=== PATIENT | female | born 1965 | race Caucasian/White ===

== ENCOUNTER 2020-09-05 09:50 | Emergency (ER) | payer OTHER ==
[~2020-09-05 09:50] MED LIST: CYMBALTA 30MG C30 MG PO; CYMBALTA20 MG PO; CYMBALTA60 MG PO; FLEXERIL10 MG PO; LISINOPRIL-HCT1 EAC1 PO; NAPROSYN500 MG PO; NEURONTIN300 MG PO; OMEPRAZOLE 20MG20 MG PO; OXYCODONE-ACET1 EAC1 PO; PERCOCET 5-3251 EACH PO; TRAMADOL HCL50 MG PO; TRAZODONE 50MG50 MG PO
[2020-09-05] MEDS ORDERED: BACTRIM DS TAB1 EACH PO (12:20)
[2020-09-20] MEDS ORDERED: OXYCODONE-ACET1 EAC1 PO (10:21)
[2020-11-20] MEDS ORDERED: OXYCODONE-ACET1 EAC1 PO (13:07)
[2021-01-03] MEDS ORDERED: OXYCODONE-ACET1 EAC1 PO (08:31)
[2021-01-04] MEDS ORDERED: OXYCODONE-ACET1 EAC1 PO (12:10)
== END 2020-09-05 12:35 | disposition home or self-care (01) ==
LOC: FER 09:50
DX: L03.213 Periorbital cellulitis (principal)
CPT/HCPCS: 99283

== ENCOUNTER 2020-10-20 00:16 | Emergency (ER) | payer OTHER ==
[~2020-10-20 00:16] MED LIST changes: +BACTRIM DS TAB1 EACH PO
[2020-11-20] MEDS ORDERED: OXYCODONE-ACET1 EAC1 PO (13:07)
[2021-01-03] MEDS ORDERED: OXYCODONE-ACET1 EAC1 PO (08:31)
[2021-01-04] MEDS ORDERED: OXYCODONE-ACET1 EAC1 PO (12:10)
[2021-02-14] MEDS ORDERED: PREGABALIN50 MG PO (17:16)
[2021-02-14] MEDS ORDERED: OXYCODONE-ACET1 EAC1 PO (17:16)
[2021-02-14] MEDS ORDERED: HYDROCODON-ACE1 EAC2 PO (17:21)
[2021-03-22] MEDS ORDERED: MELOXICAM15 MG PO (08:40)
[2021-03-22] MEDS ORDERED: OXYCODONE-ACET1 EAC1 PO (08:40)
== END 2020-10-20 01:04 | disposition home or self-care (01) ==
LOC: FER 00:16
DX: D22.62 Melanocytic nevi of left upper limb, including shoulder (principal); I10 Essential (primary) hypertension; G89.29 Other chronic pain; Z79.899 Other long term (current) drug therapy; Z79.891 Long term (current) use of opiate analgesic
CPT/HCPCS: 99282

== ENCOUNTER 2020-12-01 07:36 | Emergency (ER) | payer OTHER ==
[2021-01-03] MEDS ORDERED: OXYCODONE-ACET1 EAC1 PO (08:31)
[2021-01-04] MEDS ORDERED: OXYCODONE-ACET1 EAC1 PO (12:10)
== END 2020-12-01 08:20 | disposition home or self-care (01) ==
LOC: FER 07:36
DX: M54.2 Cervicalgia (principal); G89.29 Other chronic pain; Z79.891 Long term (current) use of opiate analgesic
CPT/HCPCS: 99283; J1885

== ENCOUNTER 2021-02-13 16:09 | Emergency (ER) | payer OTHER ==
[2021-02-13 18:39] LABS: BASOPHIL 0.6 % (0-2); EOSINOPHIL 1.6 % (0-5); HCT 36.4 % (37.0-47.0); LYMPHOCYTE 40.7 % (15-48); MCH 32.2 pg (25.0-31.0); MCV 97.6 fL (78.0-100.0); MONOCYTE 6.2 % (0-12); MPV 11.3 fL (6.0-9.5); NEUTROPHIL 50.6 % (41-80); NRBC 0; PLT 352 K/uL (150-400); RBC 3.73 M/uL (4.20-5.40); RDW 12.8 % (11.5-14.0); WBC 12.3 K/uL (4.0-10.5)
[2021-02-13 18:41] LABS: BILIRUBIN NEGATIVE (NEGATIVE); BLOOD NEGATIVE Ery/uL (NEGATIVE); CLARITY CLEAR (CLEAR); COLOR YELLOW (YELLOW); GLUCOSE (U) NORMAL (NORMAL); LEUKOCYTES NEGATIVE Leu/uL (NEGATIVE); NITRITE NEGATIVE (NEGATIVE); PROTEIN NEGATIVE (NEGATIVE); SPECIFIC GRAVITY >=1.030 (1.001-1.030); pH 5.5 (5.0-9.0)
[2021-02-13 18:46] LABS: AMPHETAMINES NEGATIVE (NEGATIVE); BARBITURATES NEGATIVE (NEGATIVE); ECSTASY (MDMA) NEGATIVE (NEGATIVE); MARIJUANA (THC) NEGATIVE (NEGATIVE); METHADONE NEGATIVE (NEGATIVE); OPIATES NEGATIVE (NEGATIVE); OXYCODONE POSITIVE (NEGATIVE)
[2021-02-13 18:50] LABS: BUN/CREAT RATIO (CALC) 14.3 RATIO; CREATININE 0.91 mg/dL (0.51-0.95); POTASSIUM 3.7 mmol/L (3.5-5.1)
[2021-02-14] MEDS ORDERED: OXYCODONE-ACET1 EAC1 PO (17:16)
[2021-02-14] MEDS ORDERED: PREGABALIN50 MG PO (17:16)
[2021-02-14] MEDS ORDERED: HYDROCODON-ACE1 EAC2 PO (17:21)
[2021-03-22] MEDS ORDERED: MELOXICAM15 MG PO (08:40)
[2021-03-22] MEDS ORDERED: OXYCODONE-ACET1 EAC1 PO (08:40)
== END 2021-02-13 20:40 | disposition home or self-care (01) ==
LOC: FER 16:09
PROVIDERS: Nurse Practitioner Family
DX: G89.29 Other chronic pain (principal); M54.2 Cervicalgia; I95.9 Hypotension, unspecified; I10 Essential (primary) hypertension
CPT/HCPCS: 36415; 80048; 80305; 81003; 85025; J1100; J1885; J7030

== ENCOUNTER 2021-08-14 18:17 | Day surgery (SDCO) | payer OTHER ==
[~2021-08-14] VITALS: Ht 160 cm; Wt 79.4 kg
[~2021-08-14 18:17] MED LIST changes: +HYDROCODON-ACE1 EAC2 PO; +MELOXICAM15 MG PO; +PREGABALIN50 MG PO
[2021-08-14 19:43] LABS: BASOPHIL 0.4 % (0-2); EOSINOPHIL 0.8 % (0-5); HCT 38.2 % (37.0-47.0); HGB 12.4 g/dl (12.5-16.0); LYMPHOCYTE 40.5 % (15-48); MCH 31.4 pg (25.0-31.0); MCHC 32.5 g/dL (32.0-36.0); MCV 96.7 fL (78.0-100.0); MONOCYTE 4.7 % (0-12); MPV 11.1 fL (6.0-9.5); NEUTROPHIL 53.2 % (41-80); NRBC 0; PLT 423 K/uL (150-400); RBC 3.95 M/uL (4.20-5.40); RDW 13.9 % (11.5-14.0); WBC 13.7 K/uL (4.0-10.5)
[2021-08-14 19:56] LABS: ALBUMIN 3.6 g/dL (3.4-5.0); BILIRUBIN - TOTAL 0.3 mg/dL (0.2-1.0); BUN/CREAT RATIO (CALC) 21.1 RATIO; CREATININE 0.9 mg/dL (0.51-0.95); GLOBULIN (CALCULATION) 3.5 g/dL; POTASSIUM 3.7 mmol/L (3.5-5.1); TOTAL PROTEIN 7.1 g/dL (6.4-8.2)
[2021-08-14 20:41] LABS: CORONAVIRUS 2019 SARS-COV-2 NEGATIVE (NEGATIVE); INFLUENZA A NAA NEGATIVE (NEGATIVE)
[2021-08-15] MEDS ORDERED: TRAZODONE HCL150 MG PO (00:57)
[2021-08-15] MEDS ORDERED: PROPRANOLOL HCL80 MG PO (00:59)
[2021-08-15 07:04] LABS: BASOPHIL 0.4 % (0-2); EOSINOPHIL 1.3 % (0-5); HCT 35.6 % (37.0-47.0); HGB 11.6 g/dl (12.5-16.0); LYMPHOCYTE 46.6 % (15-48); MCH 31.7 pg (25.0-31.0); MCHC 32.6 g/dL (32.0-36.0); MCV 97.3 fL (78.0-100.0); MONOCYTE 6.2 % (0-12); MPV 10.9 fL (6.0-9.5); NEUTROPHIL 45.2 % (41-80); NRBC 0; PLT 386 K/uL (150-400); RBC 3.66 M/uL (4.20-5.40); RDW 14.1 % (11.5-14.0)
[2021-08-15 07:06] LABS: INR 1.04 (0.9-1.2); PTT 29.7 SECONDS (24.4-34.7); WBC 12.7 K/uL (4.0-10.5)
[2021-08-15 07:17] LABS: BILIRUBIN - TOTAL 0.4 mg/dL (0.2-1.0); BUN/CREAT RATIO (CALC) 16.5 RATIO; CREATININE 0.79 mg/dL (0.51-0.95); GLOBULIN (CALCULATION) 3.1 g/dL; MAGNESIUM 1.6 mg/dL (1.8-2.4); PHOSPHORUS 3.7 mg/dL (2.6-4.7); POTASSIUM 4.1 mmol/L (3.5-5.1); TOTAL PROTEIN 6.1 g/dL (6.4-8.2)
[2021-08-16 06:56] LABS: BASOPHIL 0.2 % (0-2); EOSINOPHIL 0.1 % (0-5); HCT 32.4 % (37.0-47.0); HGB 10.8 g/dl (12.5-16.0); LYMPHOCYTE 14.5 % (15-48); MCHC 33.3 g/dL (32.0-36.0); MCV 95.9 fL (78.0-100.0); MONOCYTE 7.1 % (0-12); MPV 10.6 fL (6.0-9.5); NEUTROPHIL 77.7 % (41-80); NRBC 0; PLT 347 K/uL (150-400); RBC 3.38 M/uL (4.20-5.40); RDW 13.6 % (11.5-14.0); WBC 16.6 K/uL (4.0-10.5)
[2021-08-16 07:19] LABS: BUN/CREAT RATIO (CALC) 10.1 RATIO; CREATININE 0.79 mg/dL (0.51-0.95)
[2021-08-16 07:21] LABS: MAGNESIUM 2.5 mg/dL (1.8-2.4)
[2021-08-16 11:59] LABS: ALBUMIN 3.1 g/dL (3.4-5.0); BILIRUBIN - DIRECT 0.1 mg/dL (0.00-0.20); BILIRUBIN - TOTAL 0.3 mg/dL (0.2-1.0); GLOBULIN (CALCULATION) 2.7 g/dL; TOTAL PROTEIN 5.8 g/dL (6.4-8.2)
[2021-08-16] MEDS ORDERED: AUGMENTIN 875-1 EACH PO (15:42)
[2021-08-16] MEDS ORDERED: HYDROCODON-ACE1 EAC2 PO (17:32)
== END 2021-08-16 17:25 | disposition home or self-care (01) ==
LOC: FER 18:17 → FMS 23:37
PROVIDERS: Emergency Medicine Emergency Medical Services; Nurse Practitioner; Student in an Organized Health Care Education/Training Program; ADMIT Internal Medicine
DX: K80.12 Calculus of gallbladder with acute and chronic cholecystitis without obstruction (principal); K66.0 Peritoneal adhesions (postprocedural) (postinfection); G89.29 Other chronic pain; I10 Essential (primary) hypertension; K21.9 Gastro-esophageal reflux disease without esophagitis; G47.33 Obstructive sleep apnea (adult) (pediatric); F17.290 Nicotine dependence, other tobacco product, uncomplicated; Z90.81 Acquired absence of spleen; D84.81 Immunodeficiency due to conditions classified elsewhere; Z98.84 Bariatric surgery status; Z79.899 Other long term (current) drug therapy; Z20.822 Contact with and (suspected) exposure to COVID-19
CPT/HCPCS: 36415; 71045; 76705; 80048; 80053; 80076; 82150; 83605; 83690; 83735; 83880; 84100; 84145; 84484; 85025; 85379; 85610; 85730; 93005; 94010; C9113; G0378; J1100; J1170; J1885; J2250; J2405; J2543; J2704; J2710; J3010; J3475; J3490; J7030; J7120; Q9967; U0002

== ENCOUNTER 2021-09-13 18:49 | Emergency (ER) | payer OTHER ==
[~2021-09-13 18:49] MED LIST changes: +AUGMENTIN 875-1 EACH PO; +PROPRANOLOL HCL80 MG PO; +TRAZODONE HCL150 MG PO
[2021-09-13 20:15] LABS: BASOPHIL 0.5 % (0-2); EOSINOPHIL 0.5 % (0-5); HCT 39.9 % (37.0-47.0); HGB 13.3 g/dl (12.5-16.0); MCHC 33.3 g/dL (32.0-36.0); MCV 95.9 fL (78.0-100.0); MPV 11.1 fL (6.0-9.5); NEUTROPHIL 62.8 % (41-80); NRBC 0; PLT 401 K/uL (150-400); RBC 4.16 M/uL (4.20-5.40); RDW 13.4 % (11.5-14.0); WBC 12.1 K/uL (4.0-10.5)
[2021-09-13 20:32] LABS: ALBUMIN 3.8 g/dL (3.4-5.0); BILIRUBIN - TOTAL 0.1 mg/dL (0.2-1.0); BUN/CREAT RATIO (CALC) 17.6 RATIO; CREATININE 0.85 mg/dL (0.51-0.95); GLOBULIN (CALCULATION) 3.5 g/dL; POTASSIUM 3.7 mmol/L (3.5-5.1); TOTAL PROTEIN 7.3 g/dL (6.4-8.2)
[2021-09-13 20:35] LABS: LACTIC ACID 1.3 mmol/L (0.4-1.9)
[2021-09-13 21:57] LABS: BILIRUBIN NEGATIVE (NEGATIVE); BLOOD TRACE-INTACT Ery/uL (NEGATIVE); CLARITY CLEAR (CLEAR); COLOR YELLOW (YELLOW); GLUCOSE (U) NORMAL (NORMAL); LEUKOCYTES NEGATIVE Leu/uL (NEGATIVE); NITRITE NEGATIVE (NEGATIVE); PROTEIN NEGATIVE (NEGATIVE); UROBILINOGEN 0.2 mg/dL (0.2-1.0)
[2021-09-13 22:07] LABS: URINARY RBC RARE
[2021-09-13 22:08] LABS: SQUAMOUS EPITHELIAL CELLS RARE
[2021-09-13] MEDS ORDERED: BENTYL10 MG PO (22:13)
[2021-09-13] MEDS ORDERED: ONDANSETRON HCL4 MG PO (22:13)
== END 2021-09-13 22:37 | disposition home or self-care (01) ==
LOC: FER 18:49
PROVIDERS: Nurse Practitioner Family
DX: R10.84 Generalized abdominal pain (principal); R11.0 Nausea; R19.7 Diarrhea, unspecified; I10 Essential (primary) hypertension; Z20.822 Contact with and (suspected) exposure to COVID-19
CPT/HCPCS: 36415; 80053; 81001; 83605; 84145; 85025; 87040; J2270; J2405; J7030; Q9967; U0002

== ENCOUNTER 2021-10-16 18:45 | Emergency (ER) | payer OTHER ==
[~2021-10-16 18:45] MED LIST changes: +BENTYL10 MG PO; +ONDANSETRON HCL4 MG PO
[2021-10-16 20:51] LABS: BASOPHIL 0.5 % (0-2); EOSINOPHIL 1.2 % (0-5); HGB 12.7 g/dl (12.5-16.0); LYMPHOCYTE 33.6 % (15-48); MCH 32.2 pg (25.0-31.0); MCHC 33.4 g/dL (32.0-36.0); MCV 96.4 fL (78.0-100.0); MPV 11.8 fL (6.0-9.5); NEUTROPHIL 55.5 % (41-80); NRBC 0; PLT 363 K/uL (150-400); RBC 3.94 M/uL (4.20-5.40); RDW 13.3 % (11.5-14.0); WBC 12.3 K/uL (4.0-10.5)
[2021-10-16 21:07] LABS: ALBUMIN 3.4 g/dL (3.4-5.0); BILIRUBIN - TOTAL 0.1 mg/dL (0.2-1.0); BUN/CREAT RATIO (CALC) 27.5 RATIO; CREATININE 0.8 mg/dL (0.51-0.95); GLOBULIN (CALCULATION) 3.5 g/dL; POTASSIUM 4.2 mmol/L (3.5-5.1); TOTAL PROTEIN 6.9 g/dL (6.4-8.2)
[2021-10-16 21:14] LABS: INR 1.03 (0.9-1.2); PROTHROMBIN TIME 12.9 SECONDS (11.8-13.4); PTT 27.2 SECONDS (24.4-34.7)
[2021-10-16 21:39] LABS: CORONAVIRUS 2019 SARS-COV-2 NEGATIVE (NEGATIVE); INFLUENZA A NAA NEGATIVE (NEGATIVE)
[2021-10-16] MEDS ORDERED: OMEPRAZOLE40 MG PO (23:16)
[2021-10-17] MEDS ORDERED: OXYCODONE-ACET1 EAC1 PO (17:37)
== END 2021-10-16 23:30 | disposition home or self-care (01) ==
LOC: FER 18:45
PROVIDERS: Internal Medicine
DX: R07.89 Other chest pain (principal); K21.9 Gastro-esophageal reflux disease without esophagitis; I10 Essential (primary) hypertension; Z20.822 Contact with and (suspected) exposure to COVID-19; Z79.899 Other long term (current) drug therapy
CPT/HCPCS: 36415; 71045; 80053; 83690; 83735; 84145; 84439; 84443; 84484; 85025; 85610; 85730; 93005; 94640; 94664; U0002